=== PATIENT | male | born 2000 | race African-American/Black ===

== ENCOUNTER 2021-01-31 23:30 | Emergency (ER) | payer OTHER ==
[2021-01-31 23:38] VITALS: BP 125/75; PULSE 78; TEMP 98.4; BMI 22.6
== END 2021-02-01 02:22 | disposition home or self-care (01) ==
LOC: JER 23:30
DX: R59.9 Enlarged lymph nodes, unspecified (principal)
CPT/HCPCS: 36415; 99283-25